=== PATIENT | male | born 1935 ===

== ENCOUNTER 2020-12-23 09:30 | Outpatient (CLI) | payer OTHER | END 2020-12-23 09:37 | disposition home or self-care (01) | LOC: RAD 09:30 | PROVIDERS: ATTEND Family Medicine | DX: M54.16 Radiculopathy, lumbar region (principal) ==

== ENCOUNTER 2022-04-21 11:02 | Outpatient (CLI) | payer OTHER | END 2022-04-21 14:00 | disposition home or self-care (01) | LOC: RAD 11:02 | PROVIDERS: ATTEND Family Medicine | DX: R05.9 Cough, unspecified (principal); R53.81 Other malaise ==